=== PATIENT | male | born 1940 | race Caucasian/White ===

== ENCOUNTER → 2018-03-06 | Outpatient (CLI) | payer MEDICARE ==
--- NOTE | 2018-03-06 11:22 | RADIOLOGY REPORT (SQ) ---
EXAM DESCRIPTION: CT CHEST WITHOUT COMPLETED DATE/TIME: 03/06/2018 10:51 am REASON FOR STUDY: BRONCHIECTASIS (J47.9) J47.9 BRONCHIECTASIS, UNCOMPLICATED COMPARISON: 02/25/2015 TECHNIQUE: CT scan performed of the chest without intravenous contrast. Images reviewed with lung, soft tissue and bone windows. Reconstructed coronal and sagittal MPR images reviewed. All images st ored on PACS. All CT scanners at this facility use dose modulation, iterative reconstruction, and/or weight based d osing when appropriate to reduce radiation dose to as low as reasonably achievable (ALARA). [facility]: Dose Right [facility]: CareDose [facility]: Dose Right [facility]: Teradose 4D [facility]: [employer] RADIATION DOSE: CT Rad equipment meets quality standard of care and radiation dose reduction techniq ues were employed. CTDIvol: 8.3 mGy. DLP: 306 mGy-cm. mGy. LIMITATIONS: No technical limitations. FINDINGS: LUNGS AND PLEURA: Stable bronchiectasis in the lingula and left lower lobe. Stable areas of pleural thickening along the fissures. No developing nodules or honeycombing. No effusions. HILAR AND MEDIASTINAL STRUCTURES: No identified masses or abnormal nodes. No obvious aneurysm. HEART AND VASCULAR STRUCTURES: No aneurysm. No pericardial effusion. UPPER ABDOMEN: No significant findings. Limited exam. THYROID AND OTHER SOFT TISSUES: No masses. No adenopathy. BONES: No acute findings. HARDWARE: None in the chest. OTHER: No other significant findings. IMPRESSION: Stable bronchiectasis in the lingula and left lower lobe. TECHNICAL DOCUMENTATION: JOB ID: [id number] Quality ID # [id number]: Final reports with documentation of one or more dose reduction techniques (e.g., Au tomated exposure control, adjustment of the mA and/or kV according to patient size, use of iterative reconstruction technique) 2010 [employer]- All Rights Reserved Reading location - IP/workstation name: [email or web address]
== END ==
LOC: EDBD 02-15 14:00 → RAD 10:14
PROVIDERS: ATTEND Physician Assistant
DX: J47.9 Bronchiectasis, uncomplicated (principal)
CPT/HCPCS: 71250

== ENCOUNTER 2019-10-19 17:56 | Emergency (ER) | payer MEDICARE, OTHER ==
[2019-10-19 18:41] LABS: ABSOLUTE LYMPHOCYTES (AUTO) 0.9 10^3/uL (0.5-4.7); ABSOLUTE MONOCYTES (AUTO) 0.8 10^3/uL (0.1-1.4); ABSOLUTE NEUT (AUTO) 8.5 10^3/uL (1.7-8.2); BASOPHILS % (AUTO) 0.2 % (0-2); EOSINOPHILS % (AUTO) 0.4 % (0-6); HEMATOCRIT 36.7 % (37.9-51.0); HEMOGLOBIN 12.6 g/dL (13.5-17.0); LYMPHOCYTES % (AUTO) 8.9 % (13-45); MEAN CORPUSCULAR HEMOGLOBIN 30.1 pg (27.0-33.4); MEAN CORPUSCULAR HGB CONC 34.4 g/dL (32.0-36.0); MEAN CORPUSCULAR VOLUME 87 fl (80-97); MONOCYTES % (AUTO) 7.8 % (3-13); PLATELET COUNT 158 10^3/uL (150-450); RED CELL DISTRIBUTION WIDTH 15.4 % (11.5-14.0); SEGMENTED NEUTROPHILS % (AUTO) 82.7 % (42-78); TOTAL CELLS COUNTED % (AUTO) 100 %; WHITE BLOOD COUNT 10.2 10^3/uL (4.0-10.5)
[2019-10-19 18:44] LABS: INTERNATIONAL RATION (INR) 1.36; PROTHROMBIN TIME 16.9 SEC (11.4-15.4)
[2019-10-19 18:45] LABS: PARTIAL THROMBOPLASTIN TIME 37.3 SEC (23.5-35.8)
[2019-10-19 18:53] LABS: ALKALINE PHOSPHATASE 89 U/L (38-126); ANION GAP 6 (5-19); ASPARTATE AMINO TRANSFERASE 20 U/L (17-59); BILIRUBIN,TOTAL 1.1 mg/dL (0.2-1.3); BLOOD UREA NITROGEN 15 mg/dL (7-20); CALCIUM 8.7 mg/dL (8.4-10.2); CARBON DIOXIDE 30 mmol/L (22-30); CHLORIDE 102 mmol/L (98-107); GLUCOSE 194 mg/dL (75-110); POTASSIUM 3.8 mmol/L (3.6-5.0); TOTAL PROTEIN 6.9 g/dL (6.3-8.2)
[2019-10-19 18:54] LABS: VENOUS BLOOD BASE EXCESS 4.1 mmol/L; VENOUS BLOOD HCO3 30.2 mmol/L (20-32); VENOUS BLOOD PCO2 51.8 mmHg (35-63); VENOUS BLOOD PH 7.38 (7.30-7.42)
--- NOTE | 2019-10-19 19:10 | RADIOLOGY REPORT (SQ) ---
EXAM DESCRIPTION: CHEST SINGLE VIEW IMAGES COMPLETED DATE/TIME: 10/19/2019 5:50 pm REASON FOR STUDY: eval for pneumonia COMPARISON: CT chest, 03/06/2018. Chest radiograph, 08/08/2015. EXAM PARAMETERS: NUMBER OF VIEWS: One view. TECHNIQUE: Single frontal radiographic view of the chest acquired. RADIATION DOSE: NA LIMITATIONS: None. FINDINGS: LUNGS AND PLEURA: Lungs are hyperinflated. No focal consolidation or pleural effusion. N o pneumothorax. MEDIASTINUM AND HILAR STRUCTURES: No masses. Contour normal. HEART AND VASCULAR STRUCTURES: Heart normal in size. Normal vasculature. BONES: No acute findings. HARDWARE: None in the chest. OTHER: No other significant finding. IMPRESSION: NO ACUTE RADIOGRAPHIC FINDING IN THE CHEST. TECHNICAL DOCUMENTATION: JOB ID: [id number] 2010 [employer]- All Rights Reserved Reading location - IP/workstation name: [email or web address]
--- NOTE | 2019-10-19 19:20 | ER Document Report ---
ED General - General Chief Complaint: Shortness Of Breath Stated Complaint: FEVER Time Seen by Provider: 10/19/19 18:05 Mode of Arrival: Medic Information source: Patient, Relative TRAVEL OUTSIDE OF THE [place] IN LAST 30 DAYS: No - HPI Onset: Other - over the last several days Onset/Duration: Gradual Quality of pain: No pain Severity: Moderate Pain Level: Denies Associated symptoms: Productive cough, Fever - low grade, Shortness of breath, Weakness, Other - wheezing Exacerbated by: Other - exertion Relieved by: Denies Similar symptoms previously: Yes - when he has had pneumonia Recently seen / treated by doctor: No Notes: 79 year old male with a history of AFib, CHF, CAD, HTN, COPD on 2L of O2, DM, GERD, CVA here in the ER for several days of a productive cough, shortness of breath, wheezing, and low grade fevers (Tmax 99.9F). The patient lives with his son and daughter in law. I called the family and the daughter in law tells me the patient has been much weaker than usual and just sitting around all day. The daughter in law is concerned the patient has pneumonia and so is the patient as he has had pneumonia before. The patient denies known sick contacts or recent travel. - Related Data Allergies/Adverse Reactions: No Known Allergies Allergy (Verified 04/26/15 09:47) Home Medications: Digoxin, Sertraline, Metoprolol, Glipizide, Loratadine, Lasix, Prilosec, Spiriva, Advair, Entresto Past Medical History - General Information source: Patient - Social History Smoking Status: Former Smoker Frequency of alcohol use: None Drug Abuse: None Lives with: Family Family History: Reviewed & Not Pertinent Patient has homicidal ideation: No - Past Medical History Cardiac Medical History: Reports: Hx Atrial Fibrillation, Hx Congestive Heart Failure, Hx Coronary Artery Disease, Hx Hypertension Denies: Hx Heart Attack Pulmonary Medical History: Reports: Hx Asthma, Hx Bronchitis, Hx COPD, Hx Pneumonia Neurological Medical History: Reports: Hx Cerebrovascular Accident - X2. Denies: Hx Seizures Endocrine Medical History: Reports: Hx Diabetes Mellitus Type 2 GI Medical History: Reports: Hx Gastroesophageal Reflux Disease Musculoskeletal Medical History: Denies Hx Arthritis Psychiatric Medical History: Reports: Hx Depression - Immunizations Immunizations up to date: Yes Hx Diphtheria, Pertussis, Tetanus Vaccination: Yes Hx Pneumococcal Vaccination: 06/04/14 Review of Systems - Review of Systems Constitutional: Fever EENT: No symptoms reported Cardiovascular: No symptoms reported Respiratory: Cough, Short of breath, Wheezing Gastrointestinal: No symptoms reported Genitourinary: No symptoms reported Male Genitourinary: No symptoms reported Musculoskeletal: No symptoms reported Skin: No symptoms reported Hematologic/Lymphatic: No symptoms reported Neurological/Psychological: No symptoms reported -: Yes All other systems reviewed and negative Physical Exam - Vital signs Vitals: Resp BP Pulse Ox 18 134/65 H 96 10/19/19 17:57 10/19/19 17:57 10/19/19 17:57 - Notes Notes: GENERAL: Well-appearing, well-nourished and in no acute distress. HEAD: Atraumatic, normocephalic. EYES: Pupils equal round and reactive to light, extraocular movements intact, sclera anicteric, conjunctiva are normal. ENT: External ears normal, nares patent, oropharynx clear without exudates. Moist mucous membranes. NECK: Normal range of motion, supple without lymphadenopathy or JVD. LUNGS: Mild diffuse wheezing. Continuous Process [employer] rales or rhonchi. HEART: Regular rate and rhythm without murmurs, rubs or gallops. ABDOMEN: Soft, nontender, normoactive bowel sounds. No guarding, no rebound. No masses appreciated. EXTREMITIES: Normal range of motion, no pitting or edema. No clubbing or cyanosis. NEUROLOGICAL: Cranial nerves II through XII grossly intact. Normal speech, normal gait. PSYCH: Normal mood, normal affect. SKIN: Warm, Dry, normal turgor, no rashes or lesions noted. Course - Re-evaluation Re-evalutation: 10/19/19 20:36 The patient has wheezing on exam and low grade fevers with a productive cough but chest xray shows no infiltrates. Patient felt better after a neb, solumedrol and dose of Levaquin. Plan to treat patient as an outpatient for COPD flare with Levaquin and albuterol. Will hold on steroids except for a one time does here in the ER due him being a diabetic with a blood sugar in the 200s today. Patient's daughter in law is in agreement with the plan of outpatient follow up and she was arrange an outpatient PCP follow up appointment. - Vital Signs Vital signs: Temp Pulse Resp BP Pulse Ox 99.2 F 78 21 H 135/59 H 98 05/17/20 18:05 10/19/19 18:03 10/19/19 19:01 10/19/19 19:00 10/19/19 19:01 - Laboratory Result Diagrams: 10/19/19 18:07 10/19/19 18:07 Laboratory results interpreted by me: 10/19/19 10/19/19 10/19/19 18:07 18:07 18:07 RBC 4.20 L Hgb 12.6 L Hct 36.7 L RDW 15.4 H Lymph % (Auto) 8.9 L Absolute Neuts (auto) 8.5 H Seg Neutrophils % 82.7 H PT 16.9 H APTT 37.3 H Glucose 194 H POC Glucose 10/19/19 19:29 RBC Hgb Hct RDW Lymph % (Auto) Absolute Neuts (auto) Seg Neutrophils % PT APTT Glucose POC Glucose 181 H - Diagnostic Test Radiology reviewed: Image reviewed, Reports reviewed - EKG Interpretation by [place] EKG shows normal: Sinus rhythm, Intervals Rate: Normal [place]/QRS: Left axis deviation, IVCD When compared to previous EKG there are: No significant change Additional EKG results interpreted by me: 10/19/19 20:40 T wave inversions in aVL, V4-V6 Discharge - Discharge Clinical Impression: Cough COPD (chronic obstructive pulmonary disease) Qualifiers: COPD type: unspecified COPD Qualified Code(s): J44.9 - Chronic obstructive pulmonary disease, unspecified Condition: Stable Disposition: HOME, SELF-CARE Instructions: Chronic Obstructive Lung Disease ([facility]) Additional Instructions: Use your previously prescribed inhalers as needed for wheezing and shortness of breath. Take antibiotics (Levoquin) as prescribed. Follow up with your primary care doctor and Pulmonary Doctor to ensure improvement of symptoms. Return to an ER for trouble breathing, shortness of breath, chest pain or if worse in anyway. Prescriptions: Levofloxacin [Levaquin 750 mg Tablet] 750 mg PO DAILY #5 tablet
[2019-10-19] MEDS ORDERED: IPRATROPIUM/ALBUTEROL 0.5-2.5 MG/3 ML AMPUL NEB ONE (20:17)
[2019-10-19] MEDS ORDERED: METHYLPREDNISOLONE INJ 125 MG/2 ML SDV IV ONE (20:18)
[2019-10-19] MEDS ORDERED: LEVOFLOXACIN 750 MG TABLET PO ONE (20:18)
[2019-10-19 21:04] VITALS: BP 132/54
--- NOTE | 2019-10-19 22:12 | EKG REPORT ---
SEVERITY:- ABNORMAL ECG - SINUS RHYTHM NONSPECIFIC IVCD WITH LAD LAHB : Confirmed by: Temo Banuelos 19-Oct-2019 22:11:56
== END 2019-10-19 21:27 | disposition home or self-care (01) ==
LOC: ER 17:56
DX: J44.9 Chronic obstructive pulmonary disease, unspecified (principal); R05 Cough; R06.02 Shortness of breath; R50.9 Fever, unspecified; R53.1 Weakness; I48.91 Unspecified atrial fibrillation; I50.9 Heart failure, unspecified; I11.0 Hypertensive heart disease with heart failure; I25.10 Atherosclerotic heart disease of native coronary artery without angina pectoris; E11.9 Type 2 diabetes mellitus without complications; Z99.81 Dependence on supplemental oxygen; Z86.73 Personal history of transient ischemic attack (TIA), and cerebral infarction without residual deficits
CPT/HCPCS: 93005; 94640; 99284; 96374; 36415; 87040; 82962; 83605; 85025; 85610; 85730; 87077; 80053; 84484; 82803; 87150 ×26; 83880; 71045; 93010; J2930; A9270 ×2; J7620